=== PATIENT | female | born 1955 | race Caucasian/White ===

== ENCOUNTER 2024-12-20 10:52 | Emergency (ER) | payer MEDICARE, MEDICAID, SELFPAY ==
[2024-12-20 10:53] VITALS: BP 126/88; PULSE 78; RESP 16; TEMP 36.8; O2SAT 98
--- OUTSIDE RECORDS SUMMARY | 2024-12-20 11:28 | XMS_ITS | Clinical Summary ---
Author Organization [facility] Address [address] [place] [address] Phone Care Team Providers Care Senior Tableau Developer Name Role Phone Unavailable Primary Care Provider Unavailabl e Immunizations Immunization Administration Dates Next Due Covid-19, Mrna, Lnp-s, Pf, 1 00 Mcg Or 50 Mcg Dose (MODERNA) 10/04/2020,09/06/2020 Hepatitis A Vaccine 03/06/2015 Influenza Vaccine, Quadrivalent, PF 03/06/2015 MMR Vaccine 04/03/2015,03/06/2015 TDAP Vaccine 03/06/2015 Zoster Vaccine, live 06/13/2015 Social History Tobacco Use Types Packs/Day Years Used Date Smoking Tobacco: Never Assessed Comments Unknown Sex and Gender Information Value Date Recorded Sex Assigned at Not on file 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 Gender Identity Not on file Sexual Orientation Not on file Plan of Treatment Health Maintenance Due Date Last Done Comments DEXA Bone Density 1955 Hepatitis C Virus (HCV) Screening 1955 Mammogram 1955 Cologuard 2000 Colonoscopy 2000 Colorectal Cancer Screening 2000 Immunochemical Fecal Occult Blood 2000 Pneumococcal Immunization (5 0+ years) (1 of 1 - PCV) 2005 Zoster Immunization (2 of 3) 08/08/2015 06/13/2015 SARS-COV-2 Immunization (3 - season) 2023 10/04/2020, 09/06/2020 Influenza Immunization (#1) 2024 03/06/2015 Respiratory Syncytial Virus (RSV) Immunization (Adult) (1 - 1-dose 75+ series) 2030 DTaP/Tdap/Td Immunization Discontinued 03/06/2015 Hepatitis B Immunization Aged Out No longer eligible based on patient's age to complete this topic Human Papillomavirus (HPV) Immunization Aged Out No longer eligible based on patient's age to complete this topic Meningococcal Immunization (ACWY) Aged Out No longer eligible based on patient's age to complete this topic Rotavirus Immunization Aged Out No lo nger eligible based on patient's age to complete this topic Insurance MEDICAID [place] MEDICARE C [employer]
--- OUTSIDE RECORDS SUMMARY | 2024-12-20 11:28 | XMS_ITS | Clinical Summary ---
Author Organization [facility] Address [address] [place] [address] Care Team Providers Care Senior Business Process Analyst Name Role Phone Unknown, Notinfile Primary Care Provider Unavail able Allergies No known active allergies Encounters Date Type Department Care Team Description 12/14/2024 8:56 AM CDT - 12/14/2024 2:07 PM CDT Emergency [facility] Emergency Department [address] [place] [id number] Dysphagia, unspecified type (Primary Dx); Oral ulcer; Elevated blood pressure reading Discharge Disposition: Discharge to home or self care 12/14/2024 Telephone [facility] Medicine Otolaryngology [address] [place] [id number] Erica Horowitz MS from Last 3 Months Social History Tobacco Use Types Packs/Day Years Used Date Smoking Tobacco: Never Assessed Personal Safety Answer Date Recorded Have you ever been in or are you currently in a harmful physical or emotional relationship or is someone making you feel afraid or unsafe? 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 Gender Identity Not on file Sexual Orientation Not on file Last Filed Vital Signs Vital Sign Reading Time Taken Comments Blood Pressure 154/88 12/14/2024 12:40 PM CDT Pulse 88 12/14/2024 12:40 PM CDT Temperature 36.7 C (98.1 F) 12/14/2024 8:44 AM CDT Respiratory Rate 16 12/14/2024 12:40 PM CDT Oxygen Saturation 94% 12/14/2024 12:40 PM CDT Inhaled Oxygen Concentration - - Weight 48.5 kg (107 lb) 12/14/2024 8:44 AM CDT Height 160 cm (5' 3) 12/14/2024 8:44 AM CDT Body Mass Index 18.95 12/14/2024 8:44 AM CDT Plan of Treatment Health Maintenance Due Date Last Done Comments Breast Cancer Screening-Mammogram 1955 Colon Cancer Screening-Colonoscopy 1955 Depression Screening 1955 Fall Risk Assessment 1955 Hepatitis C Screening 1955 Osteoporosis Screening-Bone Density Scan 1955 Hepatitis B Screening 1973 Pneumococcal vaccine 65+ (1 of 1 - PCV) 2005 Zoster Vaccine (2 of 3) 08/08/2015 06/13/2015 Well Visit 65+ 2020 Covid-19 Vaccine (3 - season) 2024, 09/06/2020 Influenza Vaccine (#1) 2024 03/06/2015 DTaP/Tdap/Td Vaccine (2 - Td or Tdap) 03/06/2025 Procedures Procedure Name Priority Date/Time Associated Diagnosis Comments CT SOFT TISSUE NECK W CONTRAST ED 12/14/2024 11:07 AM CDT POCT CREATININE - DEVICE Routine 12/14/2024 9:18 AM CDT EGFR STAT 12/14/2024 9:17 AM CDT DIFFERENTIAL AUTO STAT 12/14/2024 9:1 7 AM CDT CBC WITH AUTO DIFFERENTIAL STAT 12/14/2024 9:17 AM CDT COMPREHENSIVE METABOLIC PANEL STAT 12/14/2024 9:17 AM CDT from Last 3 Months Results * CT Neck Soft Tissue W Contrast (12/14/2024 11:07 AM CDT) Anatomical Region Laterality Modality Head and Neck N/A Computed Tomogra phy 12/14/2024 11:4 4 AM CDT Impressions 12/14/2024 11:44 AM CDT 1. No definite neck CT findings to explain patient's symptoms. 2. The vocal cords are opposed to each other, with closed airway, which may be related to breath-holding at the level of the vocal cords, and recommend correlation with direct visualization. Electronically signed by: Mami Elise 12/14/2024 11:44 AM CDT EXAMINATION: CT of the neck with contrast HISTORY: Difficulty swallowing. Reported ulceration in the sublingual space. Reported dysphagia diagnosed in outside hospital recently. TECHNIQUE: CT of the neck was performed according to the standard protocol with intravenous contrast. Contrast information: 68 mL Optiray-350 COMPARISON: None available. FINDINGS: The vocal cords are opposed to each other, with closed airway, which may be related to breath-holding. There is no definite CT evidence of soft tissue edema involving the pharyngeal mucosal space. No epiglottic thickening. No prevertebral soft tissue edema. There is no rim-enhancing organized fluid collection identified. Scattered subcentimeter lymph nodes are seen in the neck. None are pathologically enlarged or abnormally enhancing. The muscles of the neck are normal. Vessels of the neck demonstrate normal course and caliber. Fascial planes are preserved and the deep spaces of the neck are normal. The visualized airway is widely patent. The base of the skull and the temporal bones are normal. Limited views of the brain including the cerebellum and brainstem are normal. The limited view of the [place] is unremarkable.The visualized portions of the orbits are normal. No substantial neuroforaminal or osseous canal stenosis in the cervical spine. Limited examination of the superior thorax shows mild paraseptal emphysema, right greater than left. Procedure Note Johnathan Sandoval MD PhD - 12/14/2024 EXAMINATION: CT of the neck with contrast HISTORY: Difficulty swallowing. Reported ulceration in the sublingual space. Reported dysphagia diagnosed in outside hospital recently. TECHNIQUE: CT of the neck was performed according to the standard protocol with intravenous contrast. Contrast information: 68 mL Optiray-350 COMPARISON: None available. FINDINGS: The vocal cords are opposed to each other, with closed airway, which may be related to breath-holding. There is no definite CT evidence of soft tissue edema involving the pharyngeal mucosal space. No epiglottic thickening. No prevertebral soft tissue edema. There is no rim-enhancing organized fluid collection identified. Scattered subcentimeter lymph nodes are seen in the neck. None are pathologically enlarged or abnormally enhancing. The muscles of the neck are normal. Vessels of the neck demonstrate normal course and caliber. Fascial planes are preserved and the deep spaces of the neck are normal. The visualized airway is widely patent. The base of the skull and the temporal bones are normal. Limited views of the brain including the cerebellum and brainstem are normal. The limited view of the [place] is unremarkable.The visualized portions of the orbits are normal. No substantial neuroforaminal or osseous canal stenosis in the cervical spine. Limited examination of the superior thorax shows mild paraseptal emphysema, right greater than left. IMPRESSION: 1. No definite neck CT findings to explain patient's symptoms. 2. The vocal cords are opposed to each other, with closed airway, which may be related to breath-holding at the level of the vocal cords, and recommend correlation with direct visualization. Electronically signed by: Johnathan Sandoval M.D. Rosaura Rogel FORK REPAIRER IMG CT PROCEDURES Final Res ult * POCT creatinine (12/14/2024 9:18 AM CDT) Pathologist [facility] Creatinine POC 0.8 0.6 - 1.1 mg/dL Blood 12/14/2024 9:18 AM CDT 12/14/2024 9:18 AM CDT Notinfile Unknown LAB POCT ORDERABLES - DEVICE F inal Result [facility] Department [place] [address] * eGFR (12/14/2024 9:17 AM CDT) Pathologist [facility] eGFR 85 >=60 mL/min/1. 73 m2 Comment: Interpretive Data Reference Interval Normal >/= 90 mL/min/1.73m2 Mildly decreased* 60 - 89 mL/min/1.73m2 Mildly to moderately decreased 45 - 59 mL/min/1.73m2 Moderately to severely decreased 30 - 44 mL/min/1.73m2 Severely decreased 15 - 29 mL/min/1.73m2 Kidney Failure < 15 mL/min/1.73m2 *Relative to young adult level Estimated glomerular filtration rate is determined by the 2020 CKD-EPI equation recommended by the National Kidney Foundation (A Unifying Approach to GFR Estimation: Recommendations of the NKF-ASK Task Force on Reassessing the Inclusion of Race in Diagnosing Kidney Disease, JASN 2020). The CKD-EPI equation should not be used for patients with unstable renal function and has not been validated in children and those over 70. Current interpretive data was last reviewed 2021. Blood 12/14/2024 9:17 AM CDT 12/14/2024 9:26 AM CDT us Rosaura Rogel NP LAB BLOOD ORDERABLES Final Result [facility] Department [place] [address] * (ABNORMAL) Differential, auto (12/14/2024 9:17 AM CDT) Neutrophil abs 8.32(H) 1.50 - 6.50 K/cumm Imm gran abs 0.05 0.00 - 0.10 K/cumm [facility] Lymphocyte abs 2.26 0.80 - 3.30 K/cumm [facility] Monocyte abs 0.77 0.20 - 0.80 K/cumm [facility] Eosinophil abs 0.05 0.00 - 0.50 K/cumm [facility] Basophil abs 0.08 0.00 - 0.10 K/cumm [facility] Neutrophil pct 72.2 % [facility] Comment: Interpretive Data Percent cell count reference ranges are not reported, since discordance with absolute values may lead to misinterpretation of CBC data. Current Interpretive Data was last revised on 2017. Imm gran pct 0.4 % [facility] Comment: Interpretive Data Percent cell count reference ranges are not reported, since discordance with absolute values may lead to misinterpretation of CBC data. Current Interpretive Data was last revised on 2017. Lymphocyte pct 19.6 % [facility] Comment: Interpretive Data Percent cell count reference ranges are not reported, since discordance with absolute values may lead to misinterpretation of CBC data. Current Interpretive Data was last revised on 2017. Monocyte pct 6.7 % [facility] Comment: Interpretive Data Percent cell count reference ranges are not reported, since discordance with absolute values may lead to misinterpretation of CBC data. Current Interpretive Data was last revised on 2017. Eosinophil pct 0.4 % [facility] Comment: Interpretive Data Percent cell count reference ranges are not reported, since discordance with absolute values may lead to misinterpretation of CBC data. Current Interpretive Data was last revised on 2017. Basophil pct 0.7 % [facility] Comment: Interpretive Data Percent cell count reference ranges are not reported, since discordance with absolute values may lead to misinterpretation of CBC data. Current Interpretive Data was last revised on 2017. Blood 12/14/2024 9:17 AM CDT 12/14/2024 9:26 AM CDT us Rosaura Rogel NP LAB BLOOD ORDERABLES Final Result [facility] Department [place] [address] * (ABNORMAL) CBC with auto differential (12/14/2024 9:17 AM CDT) WBC 11.53(H) 3.80 - 9.90 K/cumm Hgb 16.1(H) 11.9 - 15.5 g/dL [facility] Hct 49.1(H) 35.6 - 45.5 % [facility] Plt 302 150 - 400 K/cumm [facility] MPV 11.0 9.1 - 12.3 fL [facility] RBC 5.36(H) 3.90 - 5.20 M/cumm [facility] MCV 91.6 81.3 - 96.4 fL [facility] MCH 30.0 27.1 - 33.3 pg [facility] MCHC 32.8 32.3 - 35.7 g/dL [facility] RDW CV 13.2 11.1 - 14.9 % [facility] RDW SD 44.3 35.7 - 48.1 fL [facility] NRBC abs 0.00 0.00 - 0.01 K/cumm [facility] Blood 12/14/2024 9:17 AM CDT 12/14/2024 9:26 AM CDT Rosaura Rogel NP LAB BLOOD ORDERABLES Final Result [facility] Department [place] [address] * Comprehensive metabolic panel (12/14/2024 9:17 AM CDT) Sodium 142 135 - 145 mmol/L Potassium, pl 3.4 3.3 - 4.9 mmol/L [facility] Chloride 102 97 - 110 mmol/L [facility] CO2 28 22 - 32 mmol/L [facility] Anion gap 12 2 - 15 mmol/L [facility] BUN 8 6 - 25 mg/dL [facility] Creatinine 0.76 0.60 - 1.10 mg/dL [facility] Glucose 134 70 - 199 mg/dL [facility] Comment: Interpretive Data Fasting glucose >/= 126 mg/dl is diagnostic for diabetes. Fasting is defined as no caloric intake for at least 8 hours. Fasting glucose between 100 mg/dl to 125 mg/dl is diagnostic of prediabetes. In a patient with classic symptoms of hyperglycemia or hyperglycemic crisis, a random glucose >/= 200 mg/dl is diagnostic for diabetes. In the absence of unequivocal hyperglycemia, results should be confirmed by repeat testing. The classification and Diagnosis of Diabetes Diabetes Care 2021; 46: S19-S40. Current interpretive data was last revised 2022. Calcium 10.2 8.5 - 10.3 mg/dL [facility] Bilirubin, total 0.5 0.1 - 1.2 mg/dL [facility] Protein, pl 8.3 6.5 - 8.5 g/dL [facility] Albumin 4.6 3.5 - 5.0 g/dL [facility] Alk phos 82 40 - 130 Units/L [facility] ALT 22 7 - 45 Units/L [facility] AST 32 10 - 45 Units/L [facility] Blood 12/14/2024 9:17 AM CDT 12/14/2024 9:26 AM CDT Rosaura Rogel NP LAB BLOOD ORDERABLES Final Result [facility] Department [place] [address] from Last 3 Months Insurance [employer] [facility] MEDICARE ADVANTAGE [employer] [facility] MEDICARE ADVANTAGE Care Teams Senior Business Process Analyst Relationship Specialty Start Date End Date Unknown, Notinfile PCP - General 12/14/24
--- NOTE | 2024-12-20 13:18 | PC.NURSE ---
No external hemorrhoids noted with visual inspection
--- NOTE | 2024-12-20 13:21 | ED.GENADULT ---
HPI - General Adult General Chief complaint: Unspecified Stated complaint: sitting on a big knot Time Seen by Provider: 12/20/24 13:13 History of Present Illness HPI narrative: This is a 69-year-old female presenting ED with concerns about sitting on a big knot.? Patient states that she was at the dentist earlier today and wanted bathroom and sella felt something come out of her rear end. She then said that she could feel it laying against the inside her thighs. She has never had a rectal prolapse or uterine/vaginal prolapse before. No other complaints this time. [facility] Family History Family History (Updated 12/15/13 @ 07:13 by DOCTOR UNKNOWN) Grandparent Carcinoma of colon Father Family history of lung cancer Mother Family history of coronary artery disease Other Family history of amyotrophic lateral sclerosis Family history of premature coronary heart disease Social History Social History Alcohol intake: never Exam Narrative: APPEARANCE: No apparent distress. Head: atraumatic. EYES: EOMI, NOSE: Atraumatic NECK: Trachea midline RESPIRATORY: No increased rate of breathing CARDIOVASCULAR: RRR, ABDOMINAL: Non-distended soft nontender Rectal exam: No rectal prolapse, no vaginal prolapse, no hemorrhoids MUSCULOSKELETAl: No obvious deformities NEURO: Alert. Moving 4/4 extremities SKIN:: Warm, dry. Normal color PSYCHIATRIC: Normal affect Course Vital Signs Vital signs: Vital Signs Temperature 98.2 F 12/20/24 10:53 Pulse Rate 78 12/20/24 10:53 Respiratory Rate 16 12/20/24 10:53 Blood Pressure 126/88 12/20/24 10:53 Pulse Oximetry 98 12/20/24 10:53 Temperature 98.2 F 12/20/24 10:53 Pulse Rate 78 12/20/24 10:53 Respiratory Rate 16 12/20/24 10:53 Blood Pressure 126/88 12/20/24 10:53 Pulse Oximetry 98 12/20/24 10:53 Medical Decision Making [facility] Narrative Medical decision making narrative: -Course: 69-year-old female presenting with concerns about something coming out of her rectum. Her rectal exam is normal with no evidence of prolapse. No vaginal prolapse. Patient has been encouraged follow-up with primary care physician. She should return if she has another event. -DDX includes but is not limited to: Rectal prolapse, ovarian prolapse, hemorrhoids Vital Signs Vital Signs: Vital Signs Temperature 98.2 F 12/20/24 10:53 Pulse Rate 78 12/20/24 10:53 Respiratory Rate 16 12/20/24 10:53 Blood Pressure 126/88 12/20/24 10:53 Pulse Oximetry 98 12/20/24 10:53 Temperature 98.2 F 12/20/24 10:53 Pulse Rate 78 12/20/24 10:53 Respiratory Rate 16 12/20/24 10:53 Blood Pressure 126/88 12/20/24 10:53 Pulse Oximetry 98 12/20/24 10:53 Discharge Plan Discharge Clinical Impression: Pain, rectal Patient Disposition: Home Condition: Stable Instructions: Antibiotic Form, Rectal Pain (ED) Additional Instructions: Please follow-up with your primary care physician in 2 days. You develop any new or worsening symptoms return to the ED for re-evaluation. Patient Language: Burmese Follow-up/Referrals: UNKNOWN,DOCTOR [Primary Care Provider]
--- OUTSIDE RECORDS SUMMARY | 2024-12-20 13:40 | XMS_ITS | Clinical Summary ---
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
--- OUTSIDE RECORDS SUMMARY | 2024-12-20 13:40 | XMS_ITS | Clinical Summary ---
Author Organization [facility] Address [address] [place] [address] Care Team Providers Care Bacteriologist Food Name Role Phone Unknown, Notinfile Primary Care Provider Unavail able Allergies No known active allergies Encounters Date Type Department Care Team Description 12/14/2024 8:56 AM CDT - 12/14/2024 2:07 PM CDT Emergency [facility] Department [address] [place] [id number] Dysphagia, unspecified type (Primary Dx); Oral ulcer; Elevated blood pressure reading Discharge Disposition: Discharge to home or self care 12/14/2024 Telephone [facility] Medicine Otolaryngology [address] [place] [id number] Erica Horowitz MS from Last 3 [...] on file 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 The limited view of the [place] is unremarkable.The visualized portions of [...] are normal. The limited view of the [place] is unremarkable.The visualized portions of [...] signed by: Johnathan Sandoval M.D. Rosaura Rogel BLOOD COORDINATOR IMG CT PROCEDURES Final Res ult * POCT creatinine (12/14/2024 9:18 AM CDT) Pathologist [facility] Creatinine POC 0.8 0.6 - 1.1 mg/dL Blood 12/14/2024 9:18 AM CDT 12/14/2024 9:18 AM CDT Notinfile Unknown LAB POCT ORDERABLES - DEVICE F inal Result [facility] Department [place] [address] * eGFR (12/14/2024 9:17 AM CDT) Pathologist [facility] eGFR 85 >=60 mL/min/1. 73 m2 Comment: [...] Rogel NP LAB BLOOD ORDERABLES Final Result [facility] Department [place] [address] * (ABNORMAL) Differential, auto (12/14/2024 9:17 AM CDT) Neutrophil abs 8.32(H) 1.50 - 6.50 K/cumm Imm gran abs 0.05 0.00 - 0.10 K/cumm [facility] Lymphocyte abs 2.26 0.80 - 3.30 K/cumm [facility] Monocyte abs 0.77 0.20 - 0.80 K/cumm [facility] Eosinophil abs 0.05 0.00 - 0.50 K/cumm [facility] Basophil abs 0.08 0.00 - 0.10 K/cumm [facility] Neutrophil pct 72.2 % [facility] Comment: Interpretive Data Percent cell count reference ranges are not reported, since discordance with absolute values may lead to misinterpretation of CBC data. Current Interpretive Data was last revised on 2017. Imm gran pct 0.4 % [facility] Comment: Interpretive Data Percent cell count reference ranges are not reported, since discordance with absolute values may lead to misinterpretation of CBC data. Current Interpretive Data was last revised on 2017. Lymphocyte pct 19.6 % [facility] Comment: Interpretive Data Percent cell count reference ranges are not reported, since discordance with absolute values may lead to misinterpretation of CBC data. Current Interpretive Data was last revised on 2017. Monocyte pct 6.7 % [facility] Comment: Interpretive Data Percent cell count reference ranges are not reported, since discordance with absolute values may lead to misinterpretation of CBC data. Current Interpretive Data was last revised on 2017. Eosinophil pct 0.4 % [facility] Comment: Interpretive Data Percent cell count reference ranges are not reported, since discordance with absolute values may lead to misinterpretation of CBC data. Current Interpretive Data was last revised on 2017. Basophil pct 0.7 % [facility] Comment: Interpretive Data Percent cell count reference ranges are not reported, since discordance with absolute values may lead to misinterpretation of CBC data. Current Interpretive Data was last revised on 2017. Blood 12/14/2024 9:17 AM CDT 12/14/2024 9:26 AM CDT us Rosaura Rogel NP LAB BLOOD ORDERABLES Final Result [facility] Department [place] [address] * (ABNORMAL) CBC with auto differential (12/14/2024 9:17 AM CDT) WBC 11.53(H) 3.80 - 9.90 K/cumm Hgb 16.1(H) 11.9 - 15.5 g/dL [facility] Hct 49.1(H) 35.6 - 45.5 % [facility] Plt 302 150 - 400 K/cumm [facility] MPV 11.0 9.1 - 12.3 fL [facility] RBC 5.36(H) 3.90 - 5.20 M/cumm [facility] MCV 91.6 81.3 - 96.4 fL [facility] MCH 30.0 27.1 - 33.3 pg [facility] MCHC 32.8 32.3 - 35.7 g/dL [facility] RDW CV 13.2 11.1 - 14.9 % [facility] RDW SD 44.3 35.7 - 48.1 fL [facility] NRBC abs 0.00 0.00 - 0.01 K/cumm [facility] Blood 12/14/2024 9:17 AM CDT 12/14/2024 9:26 AM CDT Rosaura Rogel NP LAB BLOOD ORDERABLES Final Result [facility] Department [place] [address] * Comprehensive metabolic panel (12/14/2024 9:17 AM CDT) Sodium 142 135 - 145 mmol/L Potassium, pl 3.4 3.3 - 4.9 mmol/L [facility] Chloride 102 97 - 110 mmol/L [facility] CO2 28 22 - 32 mmol/L [facility] Anion gap 12 2 - 15 mmol/L [facility] BUN 8 6 - 25 mg/dL [facility] Creatinine 0.76 0.60 - 1.10 mg/dL [facility] Glucose 134 70 - 199 mg/dL [facility] Comment: Interpretive Data Fasting glucose >/= [...] 2022. Calcium 10.2 8.5 - 10.3 mg/dL [facility] Bilirubin, total 0.5 0.1 - 1.2 mg/dL [facility] Protein, pl 8.3 6.5 - 8.5 g/dL [facility] Albumin 4.6 3.5 - 5.0 g/dL [facility] Alk phos 82 40 - 130 Units/L [facility] ALT 22 7 - 45 Units/L [facility] AST 32 10 - 45 Units/L [facility] Blood 12/14/2024 9:17 AM CDT 12/14/2024 9:26 AM CDT Rosaura Rogel NP LAB BLOOD ORDERABLES Final Result [facility] Department [place] [address] from Last 3 Months Insurance [employer] [facility] [employer] [employer] [employer] [facility] [employer] Care Teams Bacteriologist Food Relationship Specialty Start Date End Date Unknown, Notinfile PCP - General 12/14/24
[2024-12-20 13:47] VITALS: BP 118/80; PULSE 74; RESP 16; O2SAT 98
== END 2024-12-20 13:50 | disposition home or self-care (01) ==
PROVIDERS: Emergency Provider Emergency Medicine
DX: K62.89 Other specified diseases of anus and rectum (principal)
CPT/HCPCS: 99281